=== PATIENT | male | born 1980 | race Caucasian/White ===

== ENCOUNTER → 2019-09-17 | Outpatient (CLI) | payer OTHER ==
[2016-03-09 10:30] VITALS: BP 148/85
[~2019-09-17] MED LIST: CELE200C PO; FURO40TA4 PO; HYDR-2155 PO; LISI10TA2 PO; METF500T16 PO
--- NOTE | 2019-09-17 12:45 | RAD ---
PROCEDURE: KNEE LEFT 3V, LUMBAR SPINE 2-3V STUDY DATE: 09/17/2019 CLINICAL INDICATION / HISTORY: Left knee pain. TECHNIQUE: AP, lateral, and tunnel views of the left knee. COMPARISON: None FINDINGS: The osseous structures are intact. The articular surfaces are smooth. The joint space is maintained. No intra-articular loose bodies. The alignment is within normal limits. Soft tissues suggest minimal ossification in the patellar tendon and there is ossification of the soft tissues superficial to the medial femoral condyle, near the MCL origin. No obvious joint effusion. No radio-opaque foreign bodies are identified. 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 PROCEDURE: KNEE LEFT 3V, LUMBAR SPINE 2-3V STUDY DATE: 09/17/2019 CLINICAL INDICATION / HISTORY: Back pain. TECHNIQUE: AP, lateral and coned-down lateral views of the lumbar spine were obtained COMPARISON: None FINDINGS: 6 lumbar segments are identified. Lumbar vertebral bodies are normal in height and alignment. Disc height is maintained. Pedicles are intact. IMPRESSION: Normal lumbar spine x-ray series with 6 lumbar type vertebrae noted. Electronically signed by: Emanuel Jones MD (09/17/2019 12:42 PM) [id number]
== END ==
LOC: DXRAD 11:56
PROVIDERS: ATTEND Family Medicine
DX: M54.89 Other dorsalgia (principal); M25.562 Pain in left knee
CPT/HCPCS: 72100; 73562

== ENCOUNTER → 2021-04-02 | Outpatient (CLI) | payer OTHER ==
[2016-03-09 10:30] VITALS: BP 148/85
[~2021-04-02] MED LIST changes: +LISI10TA16 PO; -LISI10TA2 PO
[2021-04-02 16:22] LABS: ALBUMIN/GLOBULIN RATIO 0.9 (1.0-1.7); C REACTIVE PROTEIN 16.1 mg/L (0-3.3); CALCIUM 9.3 mg/dL (8.5-10.1); CREATININE 0.7 mg/dL (0.7-1.3); GFR 124.3; POTASSIUM 3.9 mmol/L (3.5-5.1); TOTAL BILIRUBIN 0.4 mg/dL (0.2-1.0); TOTAL PROTEIN 8.5 g/dL (6.4-8.2)
== END ==
LOC: LAB 15:06
PROVIDERS: ATTEND Nurse Practitioner Adult Health
DX: E11.65 Type 2 diabetes mellitus with hyperglycemia (principal); R06.02 Shortness of breath; R07.9 Chest pain, unspecified; M25.50 Pain in unspecified joint; R53.83 Other fatigue; E55.9 Vitamin D deficiency, unspecified; E53.8 Deficiency of other specified B group vitamins
CPT/HCPCS: 36415; 80053; 82306; 82553; 82607; 83880; 84443; 84484; 85379; 85651; 86140